=== PATIENT | male | born 1955 | race African-American/Black ===

== ENCOUNTER 2020-12-24 15:57 | Emergency (ER) | payer MEDICARE ==
[~2020-12-24] VITALS: Ht 172.7 cm; Wt 70.0 kg
[2020-12-24] MEDS ORDERED: HYDROCODONE/ACETAMINOPHEN 5/325MG TABLET PO ONE (16:45)
[2020-12-24 16:54] VITALS: BP 149/85
== END 2020-12-24 18:47 | disposition home or self-care (01) ==
LOC: ER 15:57
DX: S52.592A Other fractures of lower end of left radius, initial encounter for closed fracture (principal); W20.8XXA Other cause of strike by thrown, projected or falling object, initial encounter; Y93.89 Activity, other specified; Y92.89 Other specified places as the place of occurrence of the external cause; R07.89 Other chest pain; Z87.01 Personal history of pneumonia (recurrent); G89.29 Other chronic pain; M25.561 Pain in right knee
CPT/HCPCS: 29125; 73090; 73110; 73130; 99283